=== PATIENT | male | born 1945 | race Caucasian/White ===

== ENCOUNTER 2020-11-29 19:52 | Emergency (ER) | payer OTHER ==
[~2020-11-29] VITALS: Ht 190.5 cm; Wt 99.0 kg
[2020-11-29] MEDS ORDERED: morphine INJ 10 MG/ML 1ML (SYR OR VIAL) IVP STA (20:14)
[2020-11-29] MEDS ORDERED: ONDANSETRON 4 MG/2 ML (SDV) Z0FRAN IVP ONE (20:15)
[2020-11-29] MEDS ORDERED: LIDOCAINE 2% VISCOUS 15 ML UDC PO ONE (20:15)
[2020-11-29] MEDS ORDERED: ANTACID SUSP 30 ML UDC (MYLANTA) PO ONE (20:15)
[2020-11-29] MEDS ORDERED: PANTOPRAZOLE 40 MG (PROTONIX) VIAL IV ONE (20:15)
[2020-11-29] MEDS ORDERED: NS IV 1000 ML 1,000 ML IV SCH (20:15)
--- NOTE | 2020-11-29 20:32 | ED General ---
General Chief Complaint: Skin/Wound Problems Stated Complaint: ABD RASH Nursing Triage Note: PT IN PER POV WITH C/O ABD RASH SECONDARY TO NEURALGIA X3 MONTHS. [facility] History of Present Illness Date Seen by Provider: Nov 29, 2020 Time Seen by Provider: 20:00 Initial Comments Patient presenting to the emergency department for evaluation of multiple complaints including continued dermatomal pain from a herpes infection that started September 03. He was diagnosed with zoster several weeks after the initial rash on his left mid abdomen and he says that he was started on medications 2 weeks after the symptoms started. He says he has had severe pain burning and sharp in the dermatomal distribution. Since that time he started having severe pain in his epigastrium and left upper quadrant that is worse whenever he eats or drinks he feels severe pain and he has been trying to avoid eating due to the severe pain. Patient says he has been on multiple medications and has tried NSAIDs Tylenol [place] gabapentin and amitriptyline. He says nothing has helped the pain and he has lost approximately 37 pounds in the past 3 months due to the symptoms. He initially said that he was taking large amounts of ibuprofen but then looking at his paperwork it appears that he has been taking large amounts of Tylenol and not ibuprofen as he says he stopped taking ibuprofen earlier on as it was not helping his symptoms. He denies fevers chills diarrhea bloody stools. He has had constipation. He is in no acute distress with normal vital signs. Allergies and Home Medications Allergies Coded Allergies: No Known Drug Allergies (Unverified , 11/29/20) Patient Home Medication List Home Medication List Reviewed: Yes Review of Systems Review of Systems Constitutional: no symptoms reported, weight loss EENTM: no symptoms reported Respiratory: no symptoms reported Cardiovascular: no symptoms reported Gastrointestinal: abdominal pain, constipation, loss of appetite, nausea, vomiting Genitourinary: no symptoms reported Musculoskeletal: no symptoms reported Skin: rash Psychiatric/Neurological: No Symptoms Reported All Other Systems Reviewed Negative Unless Noted: Yes Past Heimbjx-Tsjicn-Vjndmd Hx Patient Social History Tobacco Use?: No Smoking Status: Unknown if Ever Smoked Smokeless Tobacco Frequency: Unknown if Ever Used Use of E-Cig and/or Vaping Noel: Unknown if Ever Used Substance use?: No Alcohol Use?: Yes Alcohol Frequency: Once in a while Pt feels they are or have been: No Immunizations Up To Date First/Initial COVID19 Vaccinat: November 28, 2020 COVID19 Vaccine Tile Picker: Sholucie Physical Exam Vital Signs Vital Signs - First Documented 11/29/20 20:03 Temp 36.9 Pulse 99 Resp 16 B/P (MAP) 168/83 (111) Pulse Ox 97 O2 Delivery Room Air Capillary Refill : Less Than 3 Seconds Height, Weight, BMI Height: '" Weight: lbs. oz. kg; 27.00 BMI Method: General Appearance: No Apparent Distress, WD/WN Neck: Supple Respiratory: Lungs Clear, No Respiratory Distress Cardiovascular: Regular Rate, Rhythm Gastrointestinal: Soft, Tenderness (Diffuse left-sided abdominal tenderness to palpation with no rebound or guarding) Back: Normal Inspection Extremity: Normal Capillary Refill Neurologic/Psychiatric: Alert, Oriented x3 Skin: Warm/Dry, Other (Old appearing herpetic rash along the left upper abdomen) Progress/Results/Core Measures Suspected Sepsis SIRS Temperature: Pulse: 99 Respiratory Rate: 16 Laboratory Tests 11/29/20 20:30: White Blood Count 4.5 Blood Pressure 168 /83 Mean: 111 Laboratory Tests 11/29/20 20:30: Creatinine 0.83, Platelet Count 134, Total Bilirubin 0.5 Results/Orders Lab Results Laboratory Tests Test 11/29/20 20:30 Range/Units White Blood Count 4.5 4.3-11.0 10^3/uL Red Blood Count 4.58 4.35-5.85 10^6/uL Hemoglobin 15.1 13.3-17.7 G/DL Hematocrit 44 40-54 % Mean Corpuscular Volume 95 80-99 FL Mean Corpuscular Hemoglobin 33 25-34 PG Mean Corpuscular Hemoglobin Concent 35 32-36 G/DL Red Cell Distribution Width 12.7 10.0-14.5 % Platelet Count 134 130-400 10^3/uL Mean Platelet Volume 10.8 H 7.4-10.4 FL Immature Granulocyte % (Auto) 0 % Neutrophils (%) (Auto) 67 42-75 % Lymphocytes (%) (Auto) 24 12-44 % Monocytes (%) (Auto) 7 0-12 % Eosinophils (%) (Auto) 2 0-10 % Basophils (%) (Auto) 0 0-10 % Neutrophils # (Auto) 3.0 1.8-7.8 X 10^3 Lymphocytes # (Auto) 1.1 1.0-4.0 X 10^3 Monocytes # (Auto) 0.3 0.0-1.0 X 10^3 Eosinophils # (Auto) 0.1 0.0-0.3 10^3/uL Basophils # (Auto) 0.0 0.0-0.1 10^3/uL Immature Granulocyte # (Auto) 0.0 0.0-0.1 10^3/uL Sodium Level 140 135-145 MMOL/L Potassium Level 3.9 3.6-5.0 MMOL/L Chloride Level 104 98-107 MMOL/L Carbon Dioxide Level 23 21-32 MMOL/L Anion Gap 13 5-14 MMOL/L Blood Urea Nitrogen 25 H 7-18 MG/DL Creatinine 0.83 0.60-1.30 MG/DL Estimat Glomerular Filtration Rate 91 BUN/Creatinine Ratio 30 Glucose Level 111 H 70-105 MG/DL Calcium Level 9.7 8.5-10.1 MG/DL Corrected Calcium 9.5 8.5-10.1 MG/DL Total Bilirubin 0.5 0.1-1.0 MG/DL Aspartate Amino Transf (AST/SGOT) 11 5-34 U/L Alanine Aminotransferase (ALT/SGPT) 9 0-55 U/L Alkaline Phosphatase 72 40-136 U/L Total Protein 7.0 6.4-8.2 GM/DL Albumin 4.3 3.2-4.5 GM/DL Lipase 13 8-78 U/L Smear Scan OK My Mateus Ignacio - EWA GIRALDO DO Cbc With Automated Diff (11/29/20 20:14) Comprehensive Metabolic Panel (11/29/20 20:14) Lipase (11/29/20 20:14) Iv/Invasive Line Insertion .IV start (11/29/20 20:14) Ct Abdomen/Pelvis W (11/29/20 20:14) Ns Iv 1000 Ml (Sodium Chloride 0.9%) (11/29/20 20:15) Ondansetron Injection (Zofran Injectio (11/29/20 20:15) Morphine Injection (Morphine Injection (11/29/20 20:14) Pantoprazole Injection (Protonix Injecti (11/29/20 20:15) Lidocaine 2% Viscous 15 Ml (Xylocaine Vi (11/29/20 20:15) Antacid Suspension (Mylanta Suspension (11/29/20 20:15) Iohexol Injection (Omnipaque 350 Mg/Ml 1 (11/29/20 22:00) Received Contrast (Hold Metformin- Contr (11/29/20 22:00) Ns (Ivpb) (Sodium Chloride 0.9% Ivpb Bag (11/29/20 22:00) Hydromorphone Injection (Dilaudid Inject (11/29/20 22:30) Medications Given in ED Current Medications Medications Dose Ordered Sig/Olivia Route Start Time Stop Time Status Last Admin Dose Admin Hydromorphone HCl 1 mg ONCE ONCE IVP 11/29/20 22:30 11/29/20 22:31 DC 11/29/20 22:37 1 MG Iohexol 100 ml ONCE ONCE IV 11/29/20 22:00 11/29/20 22:01 DC 11/29/20 21:57 100 ML Ondansetron HCl 4 mg ONCE ONCE IVP 11/29/20 20:15 11/29/20 20:17 DC 11/29/20 20:41 4 MG Pantoprazole 40 mg ONCE ONCE IV 11/29/20 20:15 11/29/20 20:17 DC 11/29/20 20:46 40 MG Sodium Chloride 100 ml ONCE ONCE IV 11/29/20 22:00 11/29/20 22:01 DC 11/29/20 21:57 100 ML Vital Signs/I&O 11/29/20 20:03 Temp 36.9 Pulse 99 Resp 16 B/P (MAP) 168/83 (111) Pulse Ox 97 O2 Delivery Room Air Capillary Refill : Less Than 3 Seconds Blood Pressure Mean: 111 Progress Note : Progress Note Patient with postherpetic neuralgia with symptoms that may be more of a gastritis anything else given he has severe pain and nausea and decreased appetite with eating. Given he says he has lost 37 pounds in 3 months I will check labs imaging treat symptoms and reassess. Patient had severe pain in the emergency department but it improved with Dilaudid and his repeat abdominal exam is benign with no rebound or guarding. 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 I told patient there is no definitive diagnosis based off the CT but I am concerned that he has cancer and that is why he is losing weight and likely causing his pain as well. I told him that he warrants further work-up especially with the severe pain and recommended transfer to another facility to further treat his pain and get further work-up. Patient says that he does not have Medicare at this time and he is refusing transfer to [place]. I offered to try and transfer him to the [place] and he said he is not impressed with his [facility] and does not want me to transfer him there. I offered to give him more powerful pain medications at home and he said he does not like taking pain medication and wants to get off of them. I told him that his condition is likely treatable but he needs further testing and consultation. He says that he does not want to be transferred and does not want any new medications. I asked him what I can do for him from this emergency department and he said he does not want anything else. I offered to give him a printout of his radiology report and give him a CD of his CT and that he could try and follow with the doctors that he chooses to follow with. He is agreeable to this and was appreciative. I told him if there is anything else that he is concerned about or we can offer him he can come back to this emergency department anytime. Patient aware and agreeable with plan and was discharged. Departure Impression Primary Impression: Abdominal pain Qualified Codes: R10.9 - Unspecified abdominal pain Additional Impressions: Intra-abdominal lymphadenopathy Intraabdominal mass Disposition: HOME, SELF-CARE Condition: Stable Departure-Patient Inst. Referrals: HECTOR GUILLEN (PCP/Family) Primary Care Physician Patient Instructions: Abdominal Pain, Adult ED EWA GIRALDO DO Nov 29, 2020 20:32
[2020-11-29 20:53] LABS: HEMATOCRIT 44 % (40-54); HEMOGLOBIN 15.1 G/DL (13.3-17.7); MEAN CORPUSCULAR HEMOGLOBIN 33 PG (25-34); WHITE BLOOD COUNT 4.5 10^3/uL (4.3-11.0)
[2020-11-29 20:54] LABS: BASOPHILS % (AUTO) 0 % (0-10); EOSINOPHILS % (AUTO) 2 % (0-10); LYMPHOCYTES % (AUTO) 24 % (12-44); MEAN CORPUSCULAR HGB CONC 35 G/DL (32-36); MEAN CORPUSCULAR VOLUME 95 FL (80-99); MEAN PLATELET VOLUME 10.8 FL (7.4-10.4); MONOCYTES % (AUTO) 7 % (0-12); NEUTROPHILS % (AUTO) 67 % (42-75); PLATELET COUNT 134 10^3/uL (130-400)
[2020-11-29 20:55] LABS: EOSINOPHILS # (AUTO) 0.1 10^3/uL (0.0-0.3); LYMPHOCYTES # (AUTO) 1.1 X 10^3 (1.0-4.0); MONOCYTES # (AUTO) 0.3 X 10^3 (0.0-1.0)
[2020-11-29 21:08] LABS: SMEAR SCAN COMMENT OK
[2020-11-29 21:10] LABS: POTASSIUM 3.9 MMOL/L (3.6-5.0)
[2020-11-29 21:11] LABS: ALBUMIN 4.3 GM/DL (3.2-4.5); BILIRUBIN,TOTAL 0.5 MG/DL (0.1-1.0); CALCIUM 9.7 MG/DL (8.5-10.1); CREATININE SERUM 0.83 MG/DL (0.60-1.30)
[2020-11-29] MEDS ORDERED: HOLD METFORMIN - RECEIVED CONTRAST 20 ML VIAL IV SCH (22:00)
[2020-11-29] MEDS ORDERED: IOHEXOL 350 MG/ML 100 ML (OMNIPAQUE 350) VIAL IV ONE (22:00)
[2020-11-29] MEDS ORDERED: NS 100 ML (IVPB) BAG IV ONE (22:00)
[2020-11-29] MEDS ORDERED: HYDROmorphone 2 MG/ML VIAL (DILAUDID) IVP ONE (22:30)
[2020-11-29 23:41] VITALS: BP 179/79
--- NOTE | 2020-11-30 07:04 | Diagnostic Imaging Report ---
PROCEDURE: CT abdomen and pelvis with contrast. TECHNIQUE: Multiple contiguous axial images were obtained through the abdomen and pelvis after administration of intravenous contrast. Auto Exposure Controls were utilized during the CT exam to meet ALARA standards for radiation dose reduction. All CT scans use one or more of the following dose optimizing techniques: automated exposure control, MA and/or KvP adjustment based on patient size and exam type or iterative reconstruction. INDICATION: Abdominal rash, neuralgia for 3 months, left-sided abdominal pain, epigastric and left upper quadrant pain. COMPARISON STUDY: None FINDINGS: The lung bases are clear. Small cyst present in the liver. The spleen, pancreas, adrenal glands and right kidney are normal. Simple cysts are present in the left kidney. Urinary bladder normal. Prostate gland is enlarged and inhomogeneous. Diverticuli are present in the colon without inflammation. No ascites, free air or loculated fluid collections are present. Large retroperitoneal lymph nodes are present incasing the aorta. Enlarged lymph nodes are present in the left lower quadrant. A conglomerate mass in the left lower quadrant measures 9.2 x 6.8 cm. Osseous structures demonstrate mild degenerative changes. IMPRESSION: 1. There are large retroperitoneal left lower abdominal masses worrisome for lymphoma or possibly metastasis. 2. Diverticulosis without inflammation. Findings agree with [facility] report. Dictated by: Dictated on workstation # [id number]
== END 2020-11-29 23:41 | disposition home or self-care (01) ==
LOC: EDUNIT# 19:52 → ER FS 19:54
DX: R19.00 Intra-abdominal and pelvic swelling, mass and lump, unspecified site (principal); R59.0 Localized enlarged lymph nodes; R10.84 Generalized abdominal pain
CPT/HCPCS: 36415; 74177; 80053; 83690; 85025; 96374; 96375

== ENCOUNTER 2021-01-02 13:45 | Emergency (ER) | payer OTHER ==
[~2021-01-02] VITALS: Ht 190.5 cm; Wt 98.4 kg
[2021-01-02 14:49] LABS: BILIRUBIN,URINE NEGATIVE (NEGATIVE); CLARITY,URINE CLOUDY; COLOR,URINE YELLOW; GLUCOSE, URINE (UA) NEGATIVE (NEGATIVE); KETONES,URINE NEGATIVE (NEGATIVE); LEUKOCYTE ESTERASE ,URINE NEGATIVE (NEGATIVE); NITRITE,URINE NEGATIVE (NEGATIVE); PROTEIN,URINE NEGATIVE (NEGATIVE)
--- NOTE | 2021-01-02 14:52 | ED GU-Male ---
General Chief Complaint: Catheter/Drain/Tube Problems Stated Complaint: CATHETER BLOCKAGE Nursing Triage Note: PT AMBULATE TO ROOM 03 WITH C/O URINARY CATH BLOCKAGE. PT STATES CATH WAS WORKING THIS MORNING AND THEN STOPPED DRAINING. CATH PLACED OVER A WEEK AGO AT [facility] [place]. PT REPORTS HE HAS AN APPT WITH UROLOGIST ON SATURDAY. Source: patient Exam Limitations: no limitations History of Present Illness Date Seen by Provider: Jan 02, 2021 Time Seen by Provider: 14:26 Initial Comments Patient ER by private conveyance from home with chief complaint of catheter blockage a little bit of blood in the urine after having a bowel movement today and feeling of pain in his suprapubic region. He had the catheter placed at [facility] approximately 1 week ago. He has follow-up with Dr. Pepper at [facility] next Saturday, 2 days from now. No fevers chills nausea vomiting diarrhea. Allergies and Home Medications Allergies Coded Allergies: No Known Drug Allergies (Unverified , 11/29/20) Patient Home Medication List Home Medication List Reviewed: Yes Review of Systems Review of Systems Constitutional: No chills, No diaphoresis, No fever EENTM: No ear discharge, No ear pain Respiratory: No cough, No short of breath Cardiovascular: No chest pain, No edema Gastrointestinal: No abdominal pain, No nausea, No vomiting Genitourinary: denies discharge, denies dysuria Musculoskeletal: No back pain, No joint pain All Other Systemes Reviewed Negative Unless Noted: Yes Past Ofpfunm-Ssfnfe-Hwoohl Hx Patient Social History Tobacco Use?: No Smoking Status: Never a Smoker Substance use?: Yes Substance type: Marijuana Substance frequency: Once in a while Alcohol Use?: Yes Alcohol Frequency: Once in a while Pt feels they are or have been: No Immunizations Up To Date First/Initial COVID19 Vaccinat: 11/2020 Second COVID19 Vaccination Talha: 12/2020 COVID19 Vaccine Police Communications Dispatcher: MODERNA Physical Exam Vital Signs Vital Signs - First Documented 01/02/21 14:23 Temp 36.7 Pulse 110 Resp 19 B/P (MAP) 143/102 (116) O2 Delivery Room Air Capillary Refill : Less Than 3 Seconds Height, Weight, BMI Height: '" Weight: lbs. oz. kg; 27.00 BMI Method: General Appearance: WD/WN, moderate distress HEENT: PERRL/EOMI, pharynx normal Cardiovascular: normal peripheral pulses, regular rate, rhythm Respiratory: no respiratory distress, no accessory muscle use Gastrointestinal: soft, tenderness (Suprapubic) Extremities: normal range of motion, non-tender, normal capillary refill Progress/Results/Core Measures Suspected Sepsis SIRS Temperature: Pulse: 110 Respiratory Rate: 19 Blood Pressure 143 /102 Mean: 116 Results/Orders Lab Results Laboratory Tests Test 01/02/21 14:35 Range/Units Urine Color YELLOW Urine Clarity CLOUDY Urine pH 7.0 5-9 Urine Specific [place] 1.010 L 1.016-1.022 Urine Protein NEGATIVE NEGATIVE Urine Glucose (UA) NEGATIVE NEGATIVE Urine Ketones NEGATIVE NEGATIVE Urine Nitrite NEGATIVE NEGATIVE Urine Bilirubin NEGATIVE NEGATIVE Urine Urobilinogen 0.2 < = 1.0 MG/DL Urine Leukocyte Esterase NEGATIVE NEGATIVE Urine RBC (Auto) 3+ H NEGATIVE Urine RBC >100 H /HPF Urine WBC RARE /HPF Urine Squamous Epithelial Cells RARE /HPF Urine Crystals PRESENT H /LPF Urine Amorphous Sediment RARE TAMMY PHOSPHATE H /LPF Urine Bacteria TRACE /HPF Urine Casts NONE /LPF Urine Mucus NEGATIVE /LPF Urine Culture Indicated NO My Orders Orders - DOTTIE RAMOS Ua Culture If Indicated (01/02/21 14:10) Vital Signs/I&O 01/02/21 14:23 Temp 36.7 Pulse 110 Resp 19 B/P (MAP) 143/102 (116) O2 Delivery Room Air Capillary Refill : Less Than 3 Seconds Blood Pressure Mean: 116 Progress Note : Time: 14:51 Progress Note We are able to pass sterile set water into the bladder but could not get anything to return. Replaced the Rojas catheter and there was a large bloody clot acting as a ball valve at the orifice of the Rojas catheter. Patient's produced about 700 cc of clear urine and has significant improvement in his symptoms. Departure Impression Primary Impression: Obstruction of Rojas catheter Qualified Codes: T83.091A - Other mechanical complication of indwelling urethral catheter, initial encounter Disposition: 01 HOME, SELF-CARE Condition: Stable Departure-Patient Inst. Decision time for Depature: 14:51 Referrals: NO,LOCAL PHYSICIAN (PCP/Family) Primary Care Physician Patient Instructions: How to Care for Your Rojas Catheter, Male Add. Discharge Instructions: Drink plenty of fluids. Keep your follow-up appointment on Saturday with the urologist. All discharge instructions reviewed with patient and/or family. Voiced understanding. DOTTIE RAMOS Jan 02, 2021 14:52
[2021-01-02 14:56] LABS: AMORPHOUS SEDIMENT,UR RARE AMOR PHOSPHATE /LPF; BACTERIA,URINE TRACE /HPF; RBC,URINE >100 /HPF; SQUAMOUS EPITHELIAL CELL,UR RARE /HPF; WBC,URINE RARE /HPF
[2021-01-02 15:44] VITALS: BP 136/70
== END 2021-01-02 15:44 | disposition home or self-care (01) ==
LOC: EDUNIT# 13:45 → ER 13:46
DX: T83.091A Other mechanical complication of indwelling urethral catheter, initial encounter (principal)
CPT/HCPCS: 81000; 99282

== ENCOUNTER 2021-02-23 05:44 | Outpatient (CLI) | payer OTHER ==
[~2021-02-23] VITALS: Ht 190.5 cm; Wt 102.4 kg
[2021-02-24] MEDS ORDERED: NORT50CA PO (10:03)
[2021-02-24] MEDS ORDERED: FAMO20TA3 PO (10:03)
[2021-02-24] MEDS ORDERED: TERB15CR6 TP (10:03)
[2021-02-24] MEDS ORDERED: MULT-1136 PO (10:03)
[2021-02-24] MEDS ORDERED: PREG75CA PO (10:03)
[2021-02-24] MEDS ORDERED: OMEG-160 PO (10:03)
[2021-02-24] MEDS ORDERED: TMSL.4C PO (10:03)
[2021-02-24] MEDS ORDERED: LEVO50CA4 PO (10:03)
[2021-02-24] MEDS ORDERED: TADA5TAB13 PO (10:03)
[2021-02-24] MEDS ORDERED: [UNRECOGNIZED DRUG - CODE] TP (10:03)
[2021-02-24] MEDS ORDERED: FINA5TAB6 PO (10:03)
[2021-02-24] MEDS ORDERED: PREG150C PO (11:42)
== END 2021-02-24 11:51 | disposition home or self-care (01) ==
LOC: PREOP 05:44
PROVIDERS: ATTEND Surgery
DX: Z01.818 Encounter for other preprocedural examination (principal)

== ENCOUNTER → 2021-02-27 | Outpatient (CLI) | payer OTHER ==
[~2021-02-27] MED LIST: FAMO20TA3 PO; FINA5TAB6 PO; LEVO50CA4 PO; MULT-1136 PO; NORT50CA PO; OMEG-160 PO; PREG150C PO; PREG75CA PO; TADA5TAB13 PO; TERB15CR6 TP; TMSL.4C PO; [UNRECOGNIZED DRUG - CODE] TP
--- NOTE | 2021-02-27 16:15 | Diagnostic Imaging Report ---
PROCEDURE: CT chest without contrast. TECHNIQUE: Multiple contiguous axial images were obtained through the chest without the use of intravenous contrast. Auto Exposure Controls were utilized during the CT exam to meet ALARA standards for radiation dose reduction. INDICATION: Smoking history. History of neck and abdominal mass. Weight loss. FINDINGS: The lungs are clear with no mass or infiltrate seen. There is no effusion or pneumothorax. There is bilateral lower cervical lymphadenopathy with masses seen in the anterior and superior mediastinum. The largest is at the level of the origins of the brachiocephalic vessels and involves an area measuring approximately 7 x 10 x 9 cm. Lymphoma is a prime consideration as there is also axillary lymphadenopathy. No bony destructive lesions are seen. IMPRESSION: There is lower cervical as well as mediastinal and bilateral axillary lymphadenopathy. Malignancy needs to be excluded. Lymphoma is primary consideration. Dictated by: Dictated on workstation # [id number]
== END ==
LOC: RAD 13:00
PROVIDERS: ATTEND Nurse Practitioner
DX: Z01.89 Encounter for other specified special examinations (principal); R59.0 Localized enlarged lymph nodes; R63.4 Abnormal weight loss; Z87.891 Personal history of nicotine dependence
CPT/HCPCS: 71250

== ENCOUNTER 2021-03-01 08:13 | Day surgery (SDC) | payer OTHER ==
[2021-03-01] VITALS (11 sets, daily range): BP systolic 125–167; BP diastolic 67–90
[~2021-03-01] VITALS: Ht 190.5 cm; Wt 102.4 kg
[2021-03-01] MEDS ORDERED: ceFAZolin 2 GM IV Premixed 50 ML IV ONE (08:30)
[2021-03-01] MEDS ORDERED: LACTATED RINGERS 1,000 ML IV PRN (08:30)
[2021-03-01] MEDS ORDERED: LIDOCAINE/EPI 1%-1:100,000 (XYLOCAINE) 20ML ONE (09:11)
[2021-03-01] MEDS ORDERED: ONDANSETRON 4 MG/2 ML (SDV) Z0FRAN IVP ONE (09:30)
[2021-03-01] MEDS ORDERED: FAMOTIDINE 20MG/2ML IV (PEPCID) IVP ONE (09:30)
[2021-03-01] MEDS ORDERED: FAMOTIDINE 20MG/2ML IV (PEPCID) ONE (09:31)
[2021-03-01] MEDS ORDERED: ONDANSETRON 4 MG/2 ML (SDV) Z0FRAN ONE ×2 (09:31→09:36)
[2021-03-01] MEDS ORDERED: LIDOCAINE PF 2% 5 ML (XYLOCAINE) VIAL ONE (09:36)
[2021-03-01] MEDS ORDERED: MIDAZOLAM 2 MG/2 ML (VERSED) VIAL ONE (09:36)
[2021-03-01] MEDS ORDERED: proPOfol 200 MG/20 ML (DIPRIVAN) VIAL IV ONE (09:36)
[2021-03-01] MEDS ORDERED: fentaNYL INJ 100 MCG/2 ML AMP ONE (09:36)
[2021-03-01] MEDS ORDERED: SEVOFLURANE (ULTANE) 15 ML INHAL SOLN ONE (09:36)
--- NOTE | 2021-03-01 10:04 | Progress Note-Pre Operative ---
Pre-Operative Progress Note H&P Reviewed The H&P was reviewed, patient examined and no changes noted. Time Seen by Provider: 10:03 Date H&P Reviewed: Mar 01, 2021 Time H&P Reviewed: 10:03 Pre-Operative Diagnosis: Left neck mass, site marked PARMJIT OLSON DO Mar 01, 2021 10:04
--- NOTE | 2021-03-01 11:11 | Progress Note-Post Operative ---
Post-Operative Progess Note Surgeon (s)/Leather Stamper (s) Surgeon PARMJIT OLSON DO Leather Stamper: FRANCHESKA Conde Pre-Operative Diagnosis Left neck mass, site marked Post-Operative Diagnosis Deep Posterior Cervical LN Procedure & Operative Findings Date of Procedure 03/01/21 Procedure Performed/Findings Exc of deep posterior cervical lymph node Anesthesia Type LMA Estimated Blood Loss Estimated blood loss (mL): scant Specimens/Packing Specimens Removed deep posterior lymph node - left side PARMJIT OLSON DO Mar 01, 2021 11:11
--- NOTE | 2021-03-01 11:13 | Discharge Inst-Surgical ---
Discharge Inst-Surgical Depart Medication/Instructions New, Converted or Re-Newed RX: Other (Take Motrin or tylenol for pain) Patient Instructions Follow up Appt: Make appointment for 1 week. [phone] Instructions: No strenuous activity. May shower in 24 hours, no tub bath or soaking. Use incentive spirometer at home as directed. No Smoking Skin/Wound Care: May remove bandages in am. You need to leave the Dermabond on incision it will fall off on it's own. Symptoms to Report: Appetite Changes, Extremity Discoloration, Numbness/Tingling, Swelling Increased, Bleeding Excessive, Eyesight Changes, Pain Increased, Urine Color Change, Constipation(Persistent), Fever over 101 degree F, Pain/Pressure in chest, Urinating Difficulty, Cough Up/Vomit Blood, Heart Beat Irreg/Pounding, Pain/Pressure in jaw, Cramps in feet or legs, Lightheadedness, Pain/Pressure in shoulder, Diarrhea(Persistent), Memory Changes Suddenly, Questions/Concerns, Weight gain consecutive days, Dizziness/Fainting, Nausea/Vomiting, Shortness of Breath, Weight gain over 2 pounds If questions or concerns contact your physician Or seek help at emergency department. Activity Activity Instructions: Avoid Stress to Incision Driving Instructions: You May Drive Diet Discharge Diet: No Restrictions Diet After 24 Hours: Clear Liquid if Nauseous If Any Problems/Questions/Issu: Contact Your Physician, Go to Emergency Room Skin/Wound Care Infection Signs and Symptoms: Increased Redness, Foul Odor of Wound, Increased Drainage, Skin Itchy or Has a Rash, Increased Swelling, Temperature Above 101 F Bathing Instructions: Shower Stitches/Miguel Angel/Dermabond Dis: Dermabond Ice Pack: Ice On and Off Site PARMJIT OLSON DO Mar 01, 2021 11:13
[2021-03-01] MEDS ORDERED: HYDROmorphone 2 MG/ML VIAL (DILAUDID) IV ONE (11:45)
[2021-03-01] MEDS ORDERED: ONDANSETRON 4 MG/2 ML (SDV) Z0FRAN IVP PRN (11:45)
[2021-03-01] MEDS ORDERED: HYDROmorphone 2 MG/ML VIAL (DILAUDID) ONE (11:52)
--- NOTE | 2021-03-02 16:19 | OPERATIVE REPORT ---
DATE OF SERVICE: 03/01/2021 PREOPERATIVE DIAGNOSIS: Left posterior neck mass. POSTOPERATIVE DIAGNOSIS: Left posterior neck mass, probable deep cervical lymph node. PROCEDURE: Excision of deep cervical lymph nodes. SURGEON: Alec Olson DO SUPERVISOR ELECTRIC MOTOR TESTING: LEYLA Conde BLOOD LOSS: Scant. FLUIDS: Per anesthesia. POSTOPERATIVE CONDITION: Stable. INDICATION FOR PROCEDURE: The patient is a 75-year-old male, who had a new lesion developed in the neck as well as something in the stomach, rule out lymphoma. FINDINGS: The patient had a left posterior neck mass removed, looked like it was a posterior deep cervical lymph node. PROCEDURE NOTE: After informed consent was obtained, the patient was brought to the operating room, placed on the table in the right lateral decubitus position. He was then sterilely prepped and draped in normal fashion. Local lidocaine was used to infiltrate the skin had been marked previously. Timeout done and everyone agreed on the Marcaine, made an incision with #15 blade, carried down through the skin into subcutaneous tissue, then deepened down to subcutaneous tissue with Bovie electrocautery, going down through muscle, encountered in this mass and then started showing it out. It looked like it was a lymph node. I did open up a little bit and expressed some of the inner portion, this was grasped and passed off table and then removed the rest of this mass, which looked like a lymph node. Copiously irrigated with normal saline. Hemostasis obtained using Bovie electrocautery. Closed the deep tissue with 3-0 Vicryl 3 interrupted sutures, then closed the skin with 4-0 undyed Monocryl, 3 interrupted subcuticular stitches. Area was cleaned and dried. Dermabond placed as well as dressing. The patient tolerated the procedure and transferred to recovery room in stable condition. Sponge, instrument and needle count correct at the end of the case. Job ID: [id number] DocumentID: [id number] Dictated Date: 03/02/2021 15:48:12 Link Trainer Maintenance Man Date: 03/02/2021 16:18:42 Dictated By: ALEC OLSON DO
--- NOTE | 2021-03-02 20:18 | Anesthesia-General Post-Op ---
General Patient Condition Mental Status/LOC: Same as Preop Cardiovascular: Satisfactory Nausea/Vomiting: Absent Respiratory: Satisfactory Pain: Controlled Complications: Absent Post Op Complications Complications None Follow Up Care/Instructions Patient Instructions None needed. Anesthesia/Patient Condition Patient Condition Patient is doing well, no complaints, stable vital signs, no apparent adverse anesthesia problems. No complications reported per nursing. [place] [facility] [place]: Yes ASIF NAVARRO CRNA Mar 02, 2021 20:18
== END 2021-03-01 13:18 | disposition home or self-care (01) ==
LOC: SDC 08:13
PROVIDERS: ATTEND Surgery
DX: C83.01 Small cell B-cell lymphoma, lymph nodes of head, face, and neck (principal); I10 Essential (primary) hypertension; E78.00 Pure hypercholesterolemia, unspecified; K21.9 Gastro-esophageal reflux disease without esophagitis; G89.29 Other chronic pain; Z79.891 Long term (current) use of opiate analgesic; G47.33 Obstructive sleep apnea (adult) (pediatric); Z87.891 Personal history of nicotine dependence; Z79.890 Hormone replacement therapy; Z79.899 Other long term (current) drug therapy; Z88.8 Allergy status to other drugs, medicaments and biological substances
CPT/HCPCS: 87081

== ENCOUNTER 2021-03-10 08:54 | Outpatient (RCR) | payer OTHER | END 2021-05-05 | disposition home or self-care (01) | LOC: ONC 08:54 | PROVIDERS: ATTEND Internal Medicine Hematology & Oncology | DX: C83.08 Small cell B-cell lymphoma, lymph nodes of multiple sites (principal); N40.0 Benign prostatic hyperplasia without lower urinary tract symptoms; B02.9 Zoster without complications | CPT/HCPCS: 99214 ==

== ENCOUNTER → 2021-05-02 | Outpatient (CLI) | payer OTHER ==
--- NOTE | 2021-05-02 12:45 | Diagnostic Imaging Report ---
Indication: B-cell lymphoma, initial staging. Serum blood glucose level at time of injection 108 mg/dL. Patient was administered 14.1 mCi F-18 FDG intravenously in the left hand and PET imaging was performed from the top of skull to mid thighs. Noncontrast CT was also performed for attenuation correction and anatomic correlation. No prior PET/CT studies are available for comparison. There is bulky lymphadenopathy in the neck, particularly left neck where a large node measures approximately 8.5 x 4.0 cm. There is bulky mediastinal lymphadenopathy. Largest prevascular node measures 11.4 x 7.1 cm. There is central retroperitoneal lymphadenopathy encasing the aorta measuring approximately 15.7 x 9.7 cm. Enlarged lymph nodes in the left lower quadrant are seen. There is iliac and inguinal lymphadenopathy. Symmetric activity throughout the brain is noted. Adenopathy in the neck does show very low level FDG avidity with SUV max of approximately 3. The adenopathy in the mediastinum and abdomen is also very low level pelvic adenopathy is very low level and similar to background activity. A right inguinal node does show an SUV max of 5.7. IMPRESSION: There is bulky lymphadenopathy in the neck, chest, abdomen and pelvis, as described. Majority of adenopathy demonstrates very low-level FDG avidity with SUV max approximately 3. The highest uptake does involve the right groin lymph node, as described. Dictated by: Dictated on workstation # [id number]
== END ==
LOC: RAD 09:00
PROVIDERS: ATTEND Internal Medicine Hematology & Oncology
DX: C83.08 Small cell B-cell lymphoma, lymph nodes of multiple sites (principal)

== ENCOUNTER → 2021-05-11 | Outpatient (CLI) | payer OTHER ==
[2021-05-11 09:51] LABS: BASOPHILS % (AUTO) 0 % (0-10); HEMATOCRIT 44 % (40-54); MEAN CORPUSCULAR VOLUME 100 fL (80-99)
[2021-05-11 09:53] LABS: EOSINOPHILS # (AUTO) 0.1 10^3/uL (0.0-0.3); EOSINOPHILS % (AUTO) 2 % (0-10); HEMOGLOBIN 14.2 g/dL (13.3-17.7); LYMPHOCYTES # (AUTO) 3.4 10^3/uL (1.0-4.0); LYMPHOCYTES % (AUTO) 54 % (12-44); MEAN CORPUSCULAR HEMOGLOBIN 32 pg (25-34); MEAN CORPUSCULAR HGB CONC 32 g/dL (32-36); MEAN PLATELET VOLUME 10.7 fL (9.0-12.2); MONOCYTES # (AUTO) 1.2 10^3/uL (0.0-1.0); MONOCYTES % (AUTO) 18 % (0-12); NEUTROPHILS # (AUTO) 1.6 10^3/uL (1.8-7.8); NEUTROPHILS % (AUTO) 25 % (42-75); PLATELET COUNT 108 10^3/uL (130-400); WHITE BLOOD COUNT 6.4 10^3/uL (4.3-11.0)
[2021-05-11 10:12] LABS: ALBUMIN 4.2 GM/DL (3.2-4.5); BILIRUBIN,TOTAL 0.4 MG/DL (0.1-1.0); CALCIUM 9.4 MG/DL (8.5-10.1); CREATININE SERUM 1.11 MG/DL (0.60-1.30); POTASSIUM 3.7 MMOL/L (3.6-5.0); TOTAL PROTEIN 7.2 GM/DL (6.4-8.2)
== END ==
LOC: ONC 09:40
PROVIDERS: ATTEND Internal Medicine Hematology & Oncology
DX: C83.00 Small cell B-cell lymphoma, unspecified site (principal); B02.9 Zoster without complications; G62.89 Other specified polyneuropathies
CPT/HCPCS: 80053; 83615; 85025; 99213

== ENCOUNTER → 2021-06-23 | Outpatient (CLI) | payer OTHER ==
[2021-06-23 09:53] LABS: BASOPHILS % (AUTO) 0 % (0-10); EOSINOPHILS # (AUTO) 0.1 10^3/uL (0.0-0.3); HEMATOCRIT 38 % (40-54); LYMPHOCYTES # (AUTO) 0.7 10^3/uL (1.0-4.0); LYMPHOCYTES % (AUTO) 21 % (12-44); MEAN CORPUSCULAR VOLUME 98 fL (80-99); MONOCYTES # (AUTO) 0.3 10^3/uL (0.0-1.0)
[2021-06-23 09:55] LABS: EOSINOPHILS % (AUTO) 2 % (0-10); HEMOGLOBIN 12.6 g/dL (13.3-17.7); MEAN CORPUSCULAR HEMOGLOBIN 32 pg (25-34); MEAN CORPUSCULAR HGB CONC 33 g/dL (32-36); MEAN PLATELET VOLUME 11.2 fL (9.0-12.2); MONOCYTES % (AUTO) 8 % (0-12); NEUTROPHILS # (AUTO) 2.2 10^3/uL (1.8-7.8); NEUTROPHILS % (AUTO) 68 % (42-75); PLATELET COUNT 74 10^3/uL (130-400); WHITE BLOOD COUNT 3.3 10^3/uL (4.3-11.0)
[2021-06-23 10:11] LABS: ALBUMIN 3.5 GM/DL (3.2-4.5); BILIRUBIN,TOTAL 0.6 MG/DL (0.1-1.0); CREATININE SERUM 1.09 MG/DL (0.60-1.30); POTASSIUM 3.6 MMOL/L (3.6-5.0); TOTAL PROTEIN 6.8 GM/DL (6.4-8.2); URIC ACID 4.9 MG/DL (2.6-7.2)
== END ==
LOC: ONC 08:57
PROVIDERS: ATTEND Internal Medicine Hematology & Oncology
DX: Z45.2 Encounter for adjustment and management of vascular access device (principal); C83.08 Small cell B-cell lymphoma, lymph nodes of multiple sites; B02.9 Zoster without complications; G62.9 Polyneuropathy, unspecified; E03.9 Hypothyroidism, unspecified; N40.0 Benign prostatic hyperplasia without lower urinary tract symptoms
CPT/HCPCS: 36415; 80053; 84550; 85025; 99213

== ENCOUNTER → 2021-08-03 | Outpatient (RCR) | payer OTHER ==
[2021-08-03 09:21] LABS: HEMOGLOBIN 13.4 g/dL (13.3-17.7); MONOCYTES # (AUTO) 0.1 10^3/uL (0.0-1.0); MONOCYTES % (AUTO) 1 % (0-12)
[2021-08-03 09:23] LABS: BASOPHILS % (AUTO) 1 % (0-10); EOSINOPHILS # (AUTO) 0.1 10^3/uL (0.0-0.3); EOSINOPHILS % (AUTO) 3 % (0-10); HEMATOCRIT 42 % (40-54); LYMPHOCYTES % (AUTO) 51 % (12-44); MEAN CORPUSCULAR HEMOGLOBIN 32 pg (25-34); MEAN CORPUSCULAR HGB CONC 32 g/dL (32-36); MEAN CORPUSCULAR VOLUME 100 fL (80-99); MEAN PLATELET VOLUME 12.5 fL (9.0-12.2); NEUTROPHILS # (AUTO) 1.7 10^3/uL (1.8-7.8); NEUTROPHILS % (AUTO) 43 % (42-75); PLATELET COUNT 96 10^3/uL (130-400); WHITE BLOOD COUNT 3.9 10^3/uL (4.3-11.0)
[2021-08-03 09:44] LABS: ALBUMIN 3.6 GM/DL (3.2-4.5); BILIRUBIN,TOTAL 0.3 MG/DL (0.1-1.0); CALCIUM 8.7 MG/DL (8.5-10.1); CREATININE SERUM 0.92 MG/DL (0.60-1.30); POTASSIUM 3.8 MMOL/L (3.6-5.0); TOTAL PROTEIN 6.3 GM/DL (6.4-8.2)
== END ==
LOC: ONC 09:03
PROVIDERS: ATTEND Internal Medicine Hematology & Oncology
DX: C83.01 Small cell B-cell lymphoma, lymph nodes of head, face, and neck (principal); G62.0 Drug-induced polyneuropathy; E03.9 Hypothyroidism, unspecified; N40.0 Benign prostatic hyperplasia without lower urinary tract symptoms; B02.9 Zoster without complications
CPT/HCPCS: 36415; 80053; 84443; 85025; 99213

== ENCOUNTER → 2021-08-21 | Outpatient (CLI) | payer OTHER ==
[~2021-08-21] MED LIST changes: +CATHETER FLUSH 10 ML SYR IV PRN; +HOLD METFORMIN - RECEIVED CONTRAST 20 ML VIAL IV SCH; +IOHEXOL 350 MG/ML 100 ML (OMNIPAQUE 350) VIAL IV ONE; +NS 100 ML (IVPB) BAG IV ONE
--- NOTE | 2021-08-21 13:28 | Diagnostic Imaging Report ---
EXAMINATION: CT neck, chest, abdomen and pelvis with intravenous contrast. TECHNIQUE: Multiple contiguous axial images were obtained through the neck, chest, abdomen and pelvis after the uneventful administration of intravenous contrast. All CT scans use one or more of the following dose optimizing techniques: automated exposure control, MA and/or KvP adjustment based on patient size and exam type or iterative reconstruction. HISTORY: Lymphoma. COMPARISON: None available. FINDINGS: Neck CT: There is a 2.6 x 5.3 cm left posterior cervical lymph node. There are numerous additional mildly enlarged level two and three lymph nodes measuring up to 15 mm. There is left supraclavicular lymphadenopathy measuring up to 1.2 cm. The muscles of the neck are normal. Vessels of the neck demonstrate normal course and caliber. Fascial planes are preserved and the deep spaces of the neck are normal. The visualized airway is widely patent. The base of the skull and the temporal bones are normal. Limited views of the brain including the cerebellum and brainstem are normal. The limited view of the [place] is unremarkable. The visualized portions of the orbits are normal. There are no suspicious osseus lesions. Chest CT: There is no edema or pneumonia. No pleural effusion. No pneumothorax. No suspicious nodules. There is mild dependent atelectasis. Axillary lymphadenopathy is improved. Previously seen lymph nodes measuring up to 15 mm now measures 7 mm. Para-aortic lymphadenopathy measures 2.7 cm in short axis, previously 6.3 cm. Heart size is normal. There are moderate coronary artery calcifications. No pericardial effusion. Aorta is normal in caliber. Abdomen and Pelvis CT: The liver is normal without focal lesion. There is no biliary ductal dilation. Gallbladder is normal. Pancreas is normal. Spleen is normal. Adrenal glands are normal. There is a simple cyst in left kidney. No suspicious renal lesions. There is no hydronephrosis. Urinary bladder is normal. Bowel is normal in caliber without obstruction or inflammation. No free fluid or air. Retroperitoneal lymphadenopathy has decreased. The maximal thickness of a anastasia mass is now 3.6 cm, previously 7.8 cm. Mesenteric lymph nodes in the left lower quadrant have decreased in size measuring 2.8 cm, previously 4.8 cm., Aorta is normal in caliber without aneurysm. There are no suspicious osseous lesions. IMPRESSION: 1. Persistent but decreased size of lymphadenopathy in the neck, chest, abdomen and pelvis. Dictated by: Dictated on workstation # [id number]
== END ==
LOC: RAD 10:15
PROVIDERS: ATTEND Internal Medicine Hematology & Oncology
DX: C83.00 Small cell B-cell lymphoma, unspecified site (principal)
CPT/HCPCS: 70491; 71260; 74176

== ENCOUNTER 2021-08-24 10:43 | Outpatient (RCR) | payer OTHER ==
[~2021-08-24 10:43] MED LIST changes: -CATHETER FLUSH 10 ML SYR IV PRN; -HOLD METFORMIN - RECEIVED CONTRAST 20 ML VIAL IV SCH; -IOHEXOL 350 MG/ML 100 ML (OMNIPAQUE 350) VIAL IV ONE; -NS 100 ML (IVPB) BAG IV ONE
[2021-08-24 11:03] LABS: BASOPHILS % (AUTO) 1 % (0-10)
[2021-08-24 11:06] LABS: EOSINOPHILS # (AUTO) 0.1 10^3/uL (0.0-0.3); EOSINOPHILS % (AUTO) 2 % (0-10); HEMATOCRIT 44 % (40-54); LYMPHOCYTES # (AUTO) 2.1 10^3/uL (1.0-4.0); LYMPHOCYTES % (AUTO) 53 % (12-44); MEAN CORPUSCULAR HEMOGLOBIN 32 pg (25-34); MEAN CORPUSCULAR HGB CONC 32 g/dL (32-36); MEAN CORPUSCULAR VOLUME 99 fL (80-99); MEAN PLATELET VOLUME 12.6 fL (9.0-12.2); MONOCYTES # (AUTO) 0.1 10^3/uL (0.0-1.0); MONOCYTES % (AUTO) 2 % (0-12); NEUTROPHILS # (AUTO) 1.7 10^3/uL (1.8-7.8); NEUTROPHILS % (AUTO) 42 % (42-75); PLATELET COUNT 109 10^3/uL (130-400); WHITE BLOOD COUNT 3.9 10^3/uL (4.3-11.0)
[2021-08-24 11:17] LABS: ALBUMIN 3.8 GM/DL (3.2-4.5); BILIRUBIN,TOTAL 0.4 MG/DL (0.1-1.0); CALCIUM 9.2 MG/DL (8.5-10.1); CREATININE SERUM 0.85 MG/DL (0.60-1.30); POTASSIUM 3.8 MMOL/L (3.6-5.0); TOTAL PROTEIN 6.6 GM/DL (6.4-8.2)
== END 2021-09-02 | disposition home or self-care (01) ==
LOC: ONC 10:43
PROVIDERS: ATTEND Internal Medicine Hematology & Oncology
DX: C83.00 Small cell B-cell lymphoma, unspecified site (principal); B02.9 Zoster without complications; G62.9 Polyneuropathy, unspecified; E03.9 Hypothyroidism, unspecified
CPT/HCPCS: 36415; 80053; 85025; 99213

== ENCOUNTER → 2021-09-14 | Outpatient (CLI) | payer OTHER ==
[2021-09-14 14:15] LABS: HEMOGLOBIN 14.2 g/dL (13.3-17.7)
[2021-09-14 14:17] LABS: BASOPHILS % (AUTO) 1 % (0-10); EOSINOPHILS # (AUTO) 0.1 10^3/uL (0.0-0.3); EOSINOPHILS % (AUTO) 3 % (0-10); HEMATOCRIT 43 % (40-54); LYMPHOCYTES # (AUTO) 1.8 10^3/uL (1.0-4.0); LYMPHOCYTES % (AUTO) 52 % (12-44); MEAN CORPUSCULAR HEMOGLOBIN 33 pg (25-34); MEAN CORPUSCULAR HGB CONC 33 g/dL (32-36); MEAN CORPUSCULAR VOLUME 98 fL (80-99); MEAN PLATELET VOLUME 12.3 fL (9.0-12.2); MONOCYTES # (AUTO) 0.1 10^3/uL (0.0-1.0); MONOCYTES % (AUTO) 2 % (0-12); NEUTROPHILS # (AUTO) 1.4 10^3/uL (1.8-7.8); NEUTROPHILS % (AUTO) 42 % (42-75); PLATELET COUNT 118 10^3/uL (130-400); WHITE BLOOD COUNT 3.4 10^3/uL (4.3-11.0)
[2021-09-14 14:21] LABS: POTASSIUM 3.8 MMOL/L (3.6-5.0)
[2021-09-14 14:22] LABS: CALCIUM 9.3 MG/DL (8.5-10.1)
[2021-09-14 14:23] LABS: TOTAL PROTEIN 6.8 GM/DL (6.4-8.2)
[2021-09-14 14:25] LABS: BILIRUBIN,TOTAL 0.5 MG/DL (0.1-1.0)
[2021-09-14 14:27] LABS: CREATININE SERUM 0.84 MG/DL (0.60-1.30)
== END ==
LOC: ONC 13:14
PROVIDERS: ATTEND Internal Medicine Hematology & Oncology
DX: C83.00 Small cell B-cell lymphoma, unspecified site (principal); E03.9 Hypothyroidism, unspecified; B02.9 Zoster without complications; G62.9 Polyneuropathy, unspecified; N40.0 Benign prostatic hyperplasia without lower urinary tract symptoms
CPT/HCPCS: 80053; 85025

== ENCOUNTER 2021-10-06 10:15 | Outpatient (RCR) | payer OTHER ==
[2021-10-06 10:26] LABS: BASOPHILS % (AUTO) 1 % (0-10); EOSINOPHILS # (AUTO) 0.1 10^3/uL (0.0-0.3); EOSINOPHILS % (AUTO) 3 % (0-10); HEMATOCRIT 45 % (40-54); HEMOGLOBIN 14.7 g/dL (13.3-17.7); LYMPHOCYTES # (AUTO) 2.1 10^3/uL (1.0-4.0); LYMPHOCYTES % (AUTO) 48 % (12-44); MEAN CORPUSCULAR HEMOGLOBIN 32 pg (25-34); MEAN CORPUSCULAR HGB CONC 33 g/dL (32-36); MEAN CORPUSCULAR VOLUME 98 fL (80-99); MEAN PLATELET VOLUME 12.3 fL (9.0-12.2); MONOCYTES # (AUTO) 0.1 10^3/uL (0.0-1.0); MONOCYTES % (AUTO) 2 % (0-12); NEUTROPHILS % (AUTO) 46 % (42-75); PLATELET COUNT 121 10^3/uL (130-400); WHITE BLOOD COUNT 4.4 10^3/uL (4.3-11.0)
[2021-10-06 10:42] LABS: ALBUMIN 3.8 GM/DL (3.2-4.5); BILIRUBIN,TOTAL 0.4 MG/DL (0.1-1.0); CALCIUM 9.1 MG/DL (8.5-10.1); CREATININE SERUM 0.89 MG/DL (0.60-1.30); TOTAL PROTEIN 6.6 GM/DL (6.4-8.2)
== END 2021-11-02 | disposition home or self-care (01) ==
LOC: ONC 10:15
PROVIDERS: ATTEND Internal Medicine Hematology & Oncology
DX: C83.00 Small cell B-cell lymphoma, unspecified site (principal); B02.9 Zoster without complications; G62.9 Polyneuropathy, unspecified; E03.9 Hypothyroidism, unspecified
CPT/HCPCS: 36415; 80053; 84443; 85025

== ENCOUNTER 2021-11-10 08:44 | Outpatient (RCR) | payer OTHER ==
[2021-11-10 09:00] LABS: BASOPHILS % (AUTO) 0 % (0-10); EOSINOPHILS # (AUTO) 0.1 10^3/uL (0.0-0.3); EOSINOPHILS % (AUTO) 3 % (0-10); HEMATOCRIT 44 % (40-54); HEMOGLOBIN 14.9 g/dL (13.3-17.7); LYMPHOCYTES # (AUTO) 1.5 10^3/uL (1.0-4.0); LYMPHOCYTES % (AUTO) 40 % (12-44); MEAN CORPUSCULAR HEMOGLOBIN 33 pg (25-34); MEAN CORPUSCULAR HGB CONC 34 g/dL (32-36); MEAN CORPUSCULAR VOLUME 98 fL (80-99); MEAN PLATELET VOLUME 11.9 fL (9.0-12.2); MONOCYTES # (AUTO) 0.1 10^3/uL (0.0-1.0); MONOCYTES % (AUTO) 2 % (0-12); NEUTROPHILS # (AUTO) 2.1 10^3/uL (1.8-7.8); NEUTROPHILS % (AUTO) 55 % (42-75); PLATELET COUNT 108 10^3/uL (130-400); WHITE BLOOD COUNT 3.7 10^3/uL (4.3-11.0)
[2021-11-10 09:18] LABS: ALBUMIN 3.8 GM/DL (3.2-4.5); BILIRUBIN,TOTAL 0.4 MG/DL (0.1-1.0); CALCIUM 9.2 MG/DL (8.5-10.1); CREATININE SERUM 0.91 MG/DL (0.60-1.30); POTASSIUM 3.4 MMOL/L (3.6-5.0); TOTAL PROTEIN 6.4 GM/DL (6.4-8.2)
== END 2021-11-24 11:03 | disposition home or self-care (01) ==
LOC: ONC 08:44
PROVIDERS: ATTEND Internal Medicine Hematology & Oncology
DX: C83.00 Small cell B-cell lymphoma, unspecified site (principal); B02.9 Zoster without complications; G62.9 Polyneuropathy, unspecified; E03.9 Hypothyroidism, unspecified
CPT/HCPCS: 36415; 80053; 84443; 85025; 99213

== ENCOUNTER → 2021-12-08 | Outpatient (CLI) | payer OTHER ==
[~2021-12-08] MED LIST changes: +CATHETER FLUSH 10 ML SYR IV PRN; +HOLD METFORMIN - RECEIVED CONTRAST 20 ML VIAL IV SCH; +IOHEXOL 350 MG/ML 100 ML (OMNIPAQUE 350) VIAL IV ONE; +NS 100 ML (IVPB) BAG IV ONE
--- NOTE | 2021-12-11 13:27 | Diagnostic Imaging Report ---
CT [id number] W/ABD W WO INDICATION: Lymphoma. COMPARISON: 08/21/2021. TECHNIQUE: CT imaging of the neck, chest, abdomen and pelvis was performed with IV contrast. Automatic exposure controls were utilized to keep dose as low as reasonably achievable. FINDINGS: NECK: The left posterior cervical lymph node now measures 4.5 x 1.9 cm (previously 5.3 x 2.6 cm). A left supraclavicular lymph node has decreased in size now measuring 1.5 x 1.3 cm (previously 2.3 x 1.8 cm when measured similarly). The additional smaller cervical lymph nodes have all decreased in size as well. There are no enlarging cervical lymph nodes. Airway remains widely patent. There is no abnormal soft tissue thickening in the pharyngeal mucosal space. Degenerative changes in cervical spine are similar. No worrisome focal osseous lesions. Small mucosal retention cysts in the maxillary sinuses are unchanged. Parotid and submandibular glands are normal. CHEST: The axillary lymphadenopathy continues to decrease in size. The target lymph node now measures 1.0 x 1.3 cm (previously 1.6 x 1.5 cm). The periaortic lymph node now measures 2.0 cm in short axis (previously 2.3 cm). The remainder of the mildly enlarged mediastinal lymph nodes continue to decrease in size as well. No hilar lymphadenopathy. No pleural effusion or pneumothorax. No abnormality in the trachea. Mild paraseptal emphysema is unchanged. No pneumonia or edema. There are no suspicious pulmonary nodules. No suspicious osseous lesions have developed. ABDOMEN AND PELVIS: The left retroperitoneal anastasia mass now measures 4.1 cm in maximal thickness (previously 5.6 cm when measured similarly). All the lymph nodes along this anastasia chain have diminished in size. The left lower quadrant mesenteric lymph node measures 2.8 x 2.1 cm (previously 2.8 x 3.5 cm). No new or enlarging abdominal or pelvic lymphadenopathy. Liver and spleen remain normal in size without concerning focal abnormalities. Gallbladder is contracted without radiopaque gallstones. Stable low-attenuation left adrenal nodule. Right adrenal gland is normal. Pancreas is unremarkable. No solid renal mass or obstructive uropathy. No bowel obstruction. Stable prostatomegaly. Colonic diverticulosis without diverticulitis. Atherosclerotic aorta is normal in caliber. IMPRESSION: Continued favorable response to treatment as the lymphadenopathy in the neck, chest and abdomen all continues to decrease in size. Dictated by: Dictated on workstation # [id number]
== END ==
LOC: RAD 12:29
PROVIDERS: ATTEND Internal Medicine Hematology & Oncology
DX: C83.08 Small cell B-cell lymphoma, lymph nodes of multiple sites (principal)
CPT/HCPCS: 70491; 71260; 74178

== ENCOUNTER 2021-12-13 14:47 | Outpatient (RCR) | payer OTHER ==
[2021-12-08 09:58] LABS: HEMOGLOBIN 15.2 g/dL (13.3-17.7); LYMPHOCYTES # (AUTO) 1.7 10^3/uL (1.0-4.0)
[2021-12-08 10:00] LABS: BASOPHILS % (AUTO) 1 % (0-10); EOSINOPHILS # (AUTO) 0.1 10^3/uL (0.0-0.3); EOSINOPHILS % (AUTO) 2 % (0-10); HEMATOCRIT 45 % (40-54); LYMPHOCYTES % (AUTO) 43 % (12-44); MEAN CORPUSCULAR HEMOGLOBIN 33 pg (25-34); MEAN CORPUSCULAR HGB CONC 34 g/dL (32-36); MEAN CORPUSCULAR VOLUME 98 fL (80-99); MEAN PLATELET VOLUME 12.2 fL (9.0-12.2); MONOCYTES # (AUTO) 0.1 10^3/uL (0.0-1.0); MONOCYTES % (AUTO) 3 % (0-12); NEUTROPHILS % (AUTO) 51 % (42-75); PLATELET COUNT 118 10^3/uL (130-400); WHITE BLOOD COUNT 3.9 10^3/uL (4.3-11.0)
[2021-12-08 10:15] LABS: ALBUMIN 3.9 GM/DL (3.2-4.5); BILIRUBIN,TOTAL 0.6 MG/DL (0.1-1.0); CREATININE SERUM 0.82 MG/DL (0.60-1.30); POTASSIUM 3.8 MMOL/L (3.6-5.0); TOTAL PROTEIN 6.5 GM/DL (6.4-8.2)
[2021-12-08 10:36] LABS: SMEAR SCAN COMMENT YES
[~2021-12-13 14:47] MED LIST changes: -CATHETER FLUSH 10 ML SYR IV PRN; -HOLD METFORMIN - RECEIVED CONTRAST 20 ML VIAL IV SCH; -IOHEXOL 350 MG/ML 100 ML (OMNIPAQUE 350) VIAL IV ONE; -NS 100 ML (IVPB) BAG IV ONE
== END 2022-01-03 | disposition home or self-care (01) ==
LOC: ONC 14:47
PROVIDERS: ATTEND Internal Medicine Hematology & Oncology
DX: C83.08 Small cell B-cell lymphoma, lymph nodes of multiple sites (principal); B02.9 Zoster without complications; G62.9 Polyneuropathy, unspecified; E03.9 Hypothyroidism, unspecified
CPT/HCPCS: 36415; 80053; 84443; 85025; 99213

== ENCOUNTER 2022-01-15 09:20 | Outpatient (RCR) | payer OTHER ==
[2022-01-15 09:45] LABS: EOSINOPHILS # (AUTO) 0.1 10^3/uL (0.0-0.3); MEAN CORPUSCULAR VOLUME 99 fL (80-99)
[2022-01-15 09:47] LABS: BASOPHILS % (AUTO) 0 % (0-10); EOSINOPHILS % (AUTO) 2 % (0-10); HEMATOCRIT 45 % (40-54); HEMOGLOBIN 14.9 g/dL (13.3-17.7); LYMPHOCYTES # (AUTO) 1.4 10^3/uL (1.0-4.0); LYMPHOCYTES % (AUTO) 40 % (12-44); MEAN CORPUSCULAR HEMOGLOBIN 33 pg (25-34); MEAN CORPUSCULAR HGB CONC 34 g/dL (32-36); MEAN PLATELET VOLUME 12.4 fL (9.0-12.2); MONOCYTES # (AUTO) 0.1 10^3/uL (0.0-1.0); MONOCYTES % (AUTO) 3 % (0-12); NEUTROPHILS # (AUTO) 1.9 10^3/uL (1.8-7.8); NEUTROPHILS % (AUTO) 55 % (42-75); PLATELET COUNT 115 10^3/uL (130-400); WHITE BLOOD COUNT 3.5 10^3/uL (4.3-11.0)
[2022-01-15 09:49] LABS: SMEAR SCAN COMMENT YES
[2022-01-15 10:08] LABS: ALBUMIN 3.8 GM/DL (3.2-4.5); BILIRUBIN,TOTAL 0.5 MG/DL (0.1-1.0); CREATININE SERUM 0.83 MG/DL (0.60-1.30); POTASSIUM 3.9 MMOL/L (3.6-5.0); TOTAL PROTEIN 6.7 GM/DL (6.4-8.2)
== END 2022-02-02 | disposition home or self-care (01) ==
LOC: ONC 09:20
PROVIDERS: ATTEND Internal Medicine Hematology & Oncology
DX: C83.08 Small cell B-cell lymphoma, lymph nodes of multiple sites (principal); B02.9 Zoster without complications; G62.9 Polyneuropathy, unspecified; E03.9 Hypothyroidism, unspecified; N40.0 Benign prostatic hyperplasia without lower urinary tract symptoms
CPT/HCPCS: 36415; 80053; 85025; 99213

== ENCOUNTER 2022-02-22 09:20 | Outpatient (RCR) | payer OTHER ==
[2022-02-22 09:44] LABS: BASOPHILS % (AUTO) 1 % (0-10); HEMOGLOBIN 14.9 g/dL (13.3-17.7); MONOCYTES # (AUTO) 0.1 10^3/uL (0.0-1.0); MONOCYTES % (AUTO) 3 % (0-12)
[2022-02-22 09:46] LABS: EOSINOPHILS # (AUTO) 0.1 10^3/uL (0.0-0.3); EOSINOPHILS % (AUTO) 2 % (0-10); HEMATOCRIT 44 % (40-54); LYMPHOCYTES # (AUTO) 1.2 10^3/uL (1.0-4.0); LYMPHOCYTES % (AUTO) 38 % (12-44); MEAN CORPUSCULAR HEMOGLOBIN 33 pg (25-34); MEAN CORPUSCULAR HGB CONC 34 g/dL (32-36); MEAN CORPUSCULAR VOLUME 99 fL (80-99); NEUTROPHILS # (AUTO) 1.8 10^3/uL (1.8-7.8); NEUTROPHILS % (AUTO) 56 % (42-75); PLATELET COUNT 122 10^3/uL (130-400); WHITE BLOOD COUNT 3.2 10^3/uL (4.3-11.0)
[2022-02-22 10:03] LABS: ALBUMIN 3.8 GM/DL (3.2-4.5); BILIRUBIN,TOTAL 0.6 MG/DL (0.1-1.0); CALCIUM 9.1 MG/DL (8.5-10.1); CREATININE SERUM 0.85 MG/DL (0.60-1.30); POTASSIUM 3.7 MMOL/L (3.6-5.0); TOTAL PROTEIN 6.7 GM/DL (6.4-8.2)
== END 2022-03-05 | disposition home or self-care (01) ==
LOC: ONC 09:20
PROVIDERS: ATTEND Internal Medicine Hematology & Oncology
DX: C83.08 Small cell B-cell lymphoma, lymph nodes of multiple sites (principal); B02.9 Zoster without complications; G62.9 Polyneuropathy, unspecified; E03.9 Hypothyroidism, unspecified; N40.0 Benign prostatic hyperplasia without lower urinary tract symptoms
CPT/HCPCS: 36415; 80053; 85025; 99213

== ENCOUNTER 2022-03-26 14:22 | Outpatient (RCR) | payer OTHER ==
[2022-03-26 14:54] LABS: BASOPHILS % (AUTO) 1 % (0-10); HEMOGLOBIN 14.6 g/dL (13.3-17.7); MEAN CORPUSCULAR HGB CONC 34 g/dL (32-36); MEAN CORPUSCULAR VOLUME 98 fL (80-99)
[2022-03-26 14:56] LABS: EOSINOPHILS # (AUTO) 0.1 10^3/uL (0.0-0.3); EOSINOPHILS % (AUTO) 3 % (0-10); HEMATOCRIT 43 % (40-54); LYMPHOCYTES # (AUTO) 1.4 10^3/uL (1.0-4.0); LYMPHOCYTES % (AUTO) 40 % (12-44); MEAN CORPUSCULAR HEMOGLOBIN 33 pg (25-34); MEAN PLATELET VOLUME 11.3 fL (9.0-12.2); MONOCYTES # (AUTO) 0.1 10^3/uL (0.0-1.0); MONOCYTES % (AUTO) 4 % (0-12); NEUTROPHILS # (AUTO) 1.8 10^3/uL (1.8-7.8); NEUTROPHILS % (AUTO) 52 % (42-75); PLATELET COUNT 124 10^3/uL (130-400); WHITE BLOOD COUNT 3.4 10^3/uL (4.3-11.0)
[2022-03-26 15:20] LABS: ALBUMIN 3.7 GM/DL (3.2-4.5); BILIRUBIN,TOTAL 0.5 MG/DL (0.1-1.0); CALCIUM 8.7 MG/DL (8.5-10.1); CREATININE SERUM 0.81 MG/DL (0.60-1.30); POTASSIUM 3.6 MMOL/L (3.6-5.0)
== END 2022-04-04 | disposition home or self-care (01) ==
LOC: ONC 14:22
PROVIDERS: ATTEND Internal Medicine Hematology & Oncology
DX: C83.08 Small cell B-cell lymphoma, lymph nodes of multiple sites (principal); B02.9 Zoster without complications; G62.9 Polyneuropathy, unspecified; E03.9 Hypothyroidism, unspecified; N40.0 Benign prostatic hyperplasia without lower urinary tract symptoms
CPT/HCPCS: 36415; 80053; 85025

== ENCOUNTER 2022-04-19 08:55 | Outpatient (RCR) | payer OTHER ==
[2022-04-19 09:18] LABS: BASOPHILS % (AUTO) 1 % (0-10); EOSINOPHILS # (AUTO) 0.1 10^3/uL (0.0-0.3); MEAN CORPUSCULAR VOLUME 99 fL (80-99)
[2022-04-19 09:20] LABS: EOSINOPHILS % (AUTO) 2 % (0-10); HEMATOCRIT 45 % (40-54); LYMPHOCYTES # (AUTO) 1.2 10^3/uL (1.0-4.0); LYMPHOCYTES % (AUTO) 34 % (12-44); MEAN CORPUSCULAR HEMOGLOBIN 33 pg (25-34); MEAN CORPUSCULAR HGB CONC 33 g/dL (32-36); MEAN PLATELET VOLUME 12.2 fL (9.0-12.2); MONOCYTES # (AUTO) 0.2 10^3/uL (0.0-1.0); MONOCYTES % (AUTO) 5 % (0-12); NEUTROPHILS % (AUTO) 58 % (42-75); PLATELET COUNT 111 10^3/uL (130-400); WHITE BLOOD COUNT 3.5 10^3/uL (4.3-11.0)
[2022-04-19 09:57] LABS: ALBUMIN 3.9 GM/DL (3.2-4.5); BILIRUBIN,TOTAL 0.4 MG/DL (0.1-1.0); CALCIUM 9.2 MG/DL (8.5-10.1); CREATININE SERUM 0.93 MG/DL (0.60-1.30); POTASSIUM 3.7 MMOL/L (3.6-5.0); TOTAL PROTEIN 6.6 GM/DL (6.4-8.2)
== END 2022-05-05 | disposition home or self-care (01) ==
LOC: ONC 08:55
PROVIDERS: ATTEND Internal Medicine Hematology & Oncology
DX: C83.08 Small cell B-cell lymphoma, lymph nodes of multiple sites (principal); B02.9 Zoster without complications; G62.9 Polyneuropathy, unspecified; E03.9 Hypothyroidism, unspecified; N40.0 Benign prostatic hyperplasia without lower urinary tract symptoms
CPT/HCPCS: 36415; 80053; 85025; 99213

== ENCOUNTER 2022-05-24 13:02 | Outpatient (RCR) | payer OTHER ==
[2022-05-24 13:30] LABS: BASOPHILS % (AUTO) 1 % (0-10); HEMOGLOBIN 14.9 g/dL (13.3-17.7); MEAN CORPUSCULAR VOLUME 99 fL (80-99)
[2022-05-24 13:32] LABS: EOSINOPHILS # (AUTO) 0.1 10^3/uL (0.0-0.3); EOSINOPHILS % (AUTO) 2 % (0-10); HEMATOCRIT 45 % (40-54); LYMPHOCYTES # (AUTO) 1.3 10^3/uL (1.0-4.0); LYMPHOCYTES % (AUTO) 34 % (12-44); MEAN CORPUSCULAR HEMOGLOBIN 33 pg (25-34); MEAN CORPUSCULAR HGB CONC 34 g/dL (32-36); MONOCYTES # (AUTO) 0.1 10^3/uL (0.0-1.0); MONOCYTES % (AUTO) 3 % (0-12); NEUTROPHILS # (AUTO) 2.2 10^3/uL (1.8-7.8); NEUTROPHILS % (AUTO) 60 % (42-75); PLATELET COUNT 135 10^3/uL (130-400); WHITE BLOOD COUNT 3.8 10^3/uL (4.3-11.0)
[2022-05-24 13:50] LABS: ALBUMIN 3.8 GM/DL (3.2-4.5); BILIRUBIN,TOTAL 0.7 MG/DL (0.1-1.0); CALCIUM 9.1 MG/DL (8.5-10.1); CREATININE SERUM 0.87 MG/DL (0.60-1.30); POTASSIUM 3.7 MMOL/L (3.6-5.0); TOTAL PROTEIN 6.4 GM/DL (6.4-8.2)
== END 2022-06-05 | disposition home or self-care (01) ==
LOC: ONC 13:02
PROVIDERS: ATTEND Internal Medicine Hematology & Oncology
DX: C83.08 Small cell B-cell lymphoma, lymph nodes of multiple sites (principal); B02.9 Zoster without complications; G62.9 Polyneuropathy, unspecified; E03.9 Hypothyroidism, unspecified; N40.0 Benign prostatic hyperplasia without lower urinary tract symptoms
CPT/HCPCS: 36415; 80053; 85025; 99213

== ENCOUNTER 2022-06-22 08:58 | Outpatient (RCR) | payer OTHER ==
[2022-06-22 09:33] LABS: BASOPHILS % (AUTO) 1 % (0-10); EOSINOPHILS # (AUTO) 0.1 10^3/uL (0.0-0.3); EOSINOPHILS % (AUTO) 2 % (0-10); HEMATOCRIT 44 % (40-54); HEMOGLOBIN 14.9 g/dL (13.3-17.7); LYMPHOCYTES % (AUTO) 26 % (12-44); MEAN CORPUSCULAR HEMOGLOBIN 33 pg (25-34); MEAN CORPUSCULAR HGB CONC 34 g/dL (32-36); MEAN CORPUSCULAR VOLUME 97 fL (80-99); MEAN PLATELET VOLUME 13.7 fL (9.0-12.2); MONOCYTES # (AUTO) 0.1 10^3/uL (0.0-1.0); MONOCYTES % (AUTO) 4 % (0-12); NEUTROPHILS # (AUTO) 2.5 10^3/uL (1.8-7.8); NEUTROPHILS % (AUTO) 68 % (42-75); PLATELET COUNT 134 10^3/uL (130-400); WHITE BLOOD COUNT 3.7 10^3/uL (4.3-11.0)
[2022-06-22 09:46] LABS: ALBUMIN 3.7 GM/DL (3.2-4.5); BILIRUBIN,TOTAL 0.6 MG/DL (0.1-1.0); CREATININE SERUM 0.98 MG/DL (0.60-1.30); POTASSIUM 3.8 MMOL/L (3.6-5.0); TOTAL PROTEIN 6.3 GM/DL (6.4-8.2)
== END 2022-07-03 | disposition home or self-care (01) ==
LOC: ONC 08:58
PROVIDERS: ATTEND Internal Medicine Hematology & Oncology
DX: C83.08 Small cell B-cell lymphoma, lymph nodes of multiple sites (principal); B02.9 Zoster without complications; G62.9 Polyneuropathy, unspecified; E03.9 Hypothyroidism, unspecified; N40.0 Benign prostatic hyperplasia without lower urinary tract symptoms
CPT/HCPCS: 36415; 80053; 85025

== ENCOUNTER → 2022-07-02 | Outpatient (CLI) | payer OTHER ==
[~2022-07-02] MED LIST changes: +CATHETER FLUSH 10 ML SYR IV PRN; +HOLD METFORMIN - RECEIVED CONTRAST 20 ML VIAL IV SCH; +IOHEXOL 350 MG/ML 100 ML (OMNIPAQUE 350) VIAL IV ONE; +NS 100 ML (IVPB) BAG IV ONE
--- NOTE | 2022-07-02 14:33 | Diagnostic Imaging Report ---
INDICATION: Lymphoma, follow-up. TECHNIQUE: Axial imaging through the neck, chest, abdomen, and pelvis was performed after the administration of intravenous contrast. COMPARISON: Correlation is made with prior CT from 12/08/2021. CT NECK: The left posterior cervical lymph node measures 3.8 x 1.6 cm compared with 4.6 x 1.9 cm. The left supraclavicular lymph node is not well visualized on today's study. No other abnormally enlarged cervical lymph nodes are identified. The visualized intracranial structures are unremarkable. Posterior nasopharynx and oropharynx are unremarkable. Larynx is unremarkable. No definite thyroid mass is seen. Parotid and submandibular glands are symmetric and unremarkable. IMPRESSION: Decrease in size of left posterior cervical lymph node when compared with prior examination from 12/08/2021. CT CHEST: The targeted left axillary lymph node is slightly smaller in size at 1.2 x 0.9 cm compared with 1.3 x 1.0 cm. No other enlarged axillary lymph nodes are identified. Aidee mass in the prevascular space appears stable with short axis measurement of 1.9 cm compared with 2.0 cm. The remainder of the mediastinal nodes are stable. No hilar lymphadenopathy is identified. No pericardial or pleural fluid is detected. Parenchymal evaluation again demonstrates upper lobe paraseptal emphysema. No pulmonary mass or infiltrate is identified. CT ABDOMEN AND PELVIS: The aidee mass in the aortocaval region measures 3.9 cm AP compared with 4.1 cm on prior. Majority of the central retroperitoneal lymph nodes all appear to be smaller. Left lower quadrant aidee mass measures 2.4 x 1.8 cm compared with 2.8 x 2.1 cm on prior. No definite iliac chain or inguinal lymphadenopathy is seen. Low-attenuation circumscribed lesions in the liver are noted and stable and suggestive of liver cysts. Gallbladder is unremarkable. Pancreas and spleen are unremarkable. A low-density nodule in the left adrenal gland appears stable and suggestive of an adenoma. Right kidney is unremarkable. The large cyst in the upper pole of the left kidney is stable. Aorta is calcified but nonaneurysmal. There is diverticulosis involving the descending and sigmoid colon, but no evidence of acute diverticulitis. There is no ascites. Bladder is unremarkable. Prostate is enlarged. There are fat-containing inguinal hernias bilaterally. IMPRESSION: 1. Overall improvement in thoracic, abdominal, and pelvic lymphadenopathy when compared with prior examination from 12/08/2021. No new or enlarging aidee mass is identified. 2. Uncomplicated diverticulosis. 3. Prostatomegaly. Dictated by: Dictated on workstation # [id number]
== END ==
LOC: RAD 11:45
PROVIDERS: ATTEND Internal Medicine Hematology & Oncology
DX: C83.08 Small cell B-cell lymphoma, lymph nodes of multiple sites (principal)
CPT/HCPCS: 70491; 71260; 74176

== ENCOUNTER 2022-07-20 08:53 | Outpatient (RCR) | payer OTHER ==
[~2022-07-20 08:53] MED LIST changes: -CATHETER FLUSH 10 ML SYR IV PRN; -HOLD METFORMIN - RECEIVED CONTRAST 20 ML VIAL IV SCH; -IOHEXOL 350 MG/ML 100 ML (OMNIPAQUE 350) VIAL IV ONE; -NS 100 ML (IVPB) BAG IV ONE
[2022-07-20 09:08] LABS: BASOPHILS % (AUTO) 1 % (0-10); HEMOGLOBIN 14.8 g/dL (13.3-17.7)
[2022-07-20 09:10] LABS: EOSINOPHILS # (AUTO) 0.1 10^3/uL (0.0-0.3); EOSINOPHILS % (AUTO) 3 % (0-10); HEMATOCRIT 44 % (40-54); LYMPHOCYTES # (AUTO) 1.1 10^3/uL (1.0-4.0); LYMPHOCYTES % (AUTO) 27 % (12-44); MEAN CORPUSCULAR HEMOGLOBIN 33 pg (25-34); MEAN CORPUSCULAR HGB CONC 34 g/dL (32-36); MEAN CORPUSCULAR VOLUME 98 fL (80-99); MEAN PLATELET VOLUME 11.8 fL (9.0-12.2); MONOCYTES # (AUTO) 0.2 10^3/uL (0.0-1.0); MONOCYTES % (AUTO) 4 % (0-12); NEUTROPHILS # (AUTO) 2.7 10^3/uL (1.8-7.8); NEUTROPHILS % (AUTO) 65 % (42-75); PLATELET COUNT 124 10^3/uL (130-400); WHITE BLOOD COUNT 4.2 10^3/uL (4.3-11.0)
[2022-07-20 09:28] LABS: ALBUMIN 3.6 GM/DL (3.2-4.5); BILIRUBIN,TOTAL 0.5 MG/DL (0.1-1.0); CALCIUM 8.9 MG/DL (8.5-10.1); CREATININE SERUM 0.98 MG/DL (0.60-1.30); TOTAL PROTEIN 6.1 GM/DL (6.4-8.2)
== END 2022-08-03 | disposition home or self-care (01) ==
LOC: ONC 08:53
PROVIDERS: ATTEND Internal Medicine Hematology & Oncology
DX: C83.08 Small cell B-cell lymphoma, lymph nodes of multiple sites (principal); B02.9 Zoster without complications; G62.9 Polyneuropathy, unspecified; E03.9 Hypothyroidism, unspecified; N40.0 Benign prostatic hyperplasia without lower urinary tract symptoms
CPT/HCPCS: 36415; 80053; 85025

== ENCOUNTER 2022-08-17 09:14 | Outpatient (RCR) | payer OTHER ==
[2022-08-17 09:38] LABS: HEMOGLOBIN 15.3 g/dL (13.3-17.7); MEAN CORPUSCULAR HGB CONC 34 g/dL (32-36)
[2022-08-17 09:40] LABS: BASOPHILS % (AUTO) 1 % (0-10); EOSINOPHILS # (AUTO) 0.1 10^3/uL (0.0-0.3); EOSINOPHILS % (AUTO) 2 % (0-10); HEMATOCRIT 45 % (40-54); LYMPHOCYTES % (AUTO) 29 % (12-44); MEAN CORPUSCULAR HEMOGLOBIN 33 pg (25-34); MEAN CORPUSCULAR VOLUME 97 fL (80-99); MEAN PLATELET VOLUME 12.5 fL (9.0-12.2); MONOCYTES # (AUTO) 0.1 10^3/uL (0.0-1.0); MONOCYTES % (AUTO) 4 % (0-12); NEUTROPHILS # (AUTO) 2.2 10^3/uL (1.8-7.8); NEUTROPHILS % (AUTO) 64 % (42-75); PLATELET COUNT 122 10^3/uL (130-400); WHITE BLOOD COUNT 3.4 10^3/uL (4.3-11.0)
[2022-08-17 09:54] LABS: ALBUMIN 3.9 GM/DL (3.2-4.5); BILIRUBIN,TOTAL 0.6 MG/DL (0.1-1.0); CALCIUM 9.1 MG/DL (8.5-10.1); CREATININE SERUM 0.86 MG/DL (0.60-1.30); POTASSIUM 3.8 MMOL/L (3.6-5.0); TOTAL PROTEIN 6.4 GM/DL (6.4-8.2)
== END 2022-09-02 | disposition home or self-care (01) ==
LOC: ONC 09:14
PROVIDERS: ATTEND Internal Medicine Hematology & Oncology
DX: C83.08 Small cell B-cell lymphoma, lymph nodes of multiple sites (principal); B02.9 Zoster without complications; G62.9 Polyneuropathy, unspecified; E03.9 Hypothyroidism, unspecified; N40.0 Benign prostatic hyperplasia without lower urinary tract symptoms
CPT/HCPCS: 36415; 80053; 85025

== ENCOUNTER → 2022-09-10 | Outpatient (CLI) | payer OTHER ==
[~2022-09-10] MED LIST changes: +IOHEXOL 350 MG/ML 100 ML (OMNIPAQUE 350) VIAL IV ONE; +NS 100 ML (IVPB) BAG IV ONE
--- NOTE | 2022-09-10 11:06 | Diagnostic Imaging Report ---
EXAMINATION: CT neck, chest, abdomen and pelvis with intravenous contrast. TECHNIQUE: Multiple contiguous axial images were obtained through the neck, chest, abdomen and pelvis after the uneventful administration of intravenous contrast. All CT scans use one or more of the following dose optimizing techniques: automated exposure control, MA and/or KvP adjustment based on patient size and exam type or iterative reconstruction. HISTORY: Lymphoma. COMPARISON: 07/02/2022 FINDINGS: Neck CT: A left posterior cervical lymph node measures 1.4 x 3.5 cm, previously 1.4 x 3.5 cm. Other lymph nodes in the neck are also unchanged in size. No new lymphadenopathy is seen. The muscles of the neck are normal. Vessels of the neck demonstrate normal course and caliber. Fascial planes are preserved and the deep spaces of the neck are normal. The visualized airway is widely patent. The base of the skull and the temporal bones are normal. Limited views of the brain including the cerebellum and brainstem are normal. The limited view of the [place] is unremarkable. The visualized portions of the orbits are normal. There is bilateral maxillary sinus mucosal disease. Chest CT: There is no edema or pneumonia. No pleural effusion. No pneumothorax. No suspicious nodules. There is no axillary or supraclavicular lymphadenopathy. Para-aortic lymph nodes measure up to 1.0 x 4.3 cm and are unchanged. No new lymphadenopathy is seen in the chest. Ascending aorta measures up to 4.7 cm and is unchanged. Heart size is normal. There are severe coronary artery calcifications. No pericardial effusion. Abdomen and Pelvis CT: A few tiny liver lesions are likely cysts but too small to characterize and are unchanged. No suspicious liver lesions. There is no biliary ductal dilation. Gallbladder is normal. Pancreas is normal. Spleen is normal. There is an unchanged 2.0 x 1.7 cm left adrenal nodule. Right adrenal gland is normal. There is a simple cyst in the left kidney. No suspicious renal lesion. There is no hydronephrosis. Urinary bladder is normal. Prostate gland is enlarged. Bowel is normal in caliber without obstruction or inflammation. There is diverticulosis without diverticulitis. No free fluid or air. Retroperitoneal lymph nodes measure up to 1.6 cm in short axis and are unchanged. No new lymphadenopathy in the abdomen or pelvis. Aorta is normal in caliber without aneurysm. There are no suspicious osseus lesions. IMPRESSION: 1. Unchanged lymphadenopathy in the neck, chest, abdomen and pelvis. 2. Unchanged 4.7 cm ascending aortic aneurysm. Dictated by: Dictated on workstation # [id number]
== END ==
LOC: RAD 09:45
PROVIDERS: ATTEND Internal Medicine Hematology & Oncology
DX: C83.08 Small cell B-cell lymphoma, lymph nodes of multiple sites (principal); I71.9 Aortic aneurysm of unspecified site, without rupture
CPT/HCPCS: 70491; 71260; 74176

== ENCOUNTER 2022-09-14 09:19 | Outpatient (RCR) | payer OTHER ==
[~2022-09-14 09:19] MED LIST changes: -IOHEXOL 350 MG/ML 100 ML (OMNIPAQUE 350) VIAL IV ONE; -NS 100 ML (IVPB) BAG IV ONE
[2022-09-14 09:46] LABS: BASOPHILS % (AUTO) 1 % (0-10)
[2022-09-14 09:48] LABS: EOSINOPHILS # (AUTO) 0.1 10^3/uL (0.0-0.3); EOSINOPHILS % (AUTO) 3 % (0-10); HEMATOCRIT 44 % (40-54); HEMOGLOBIN 14.4 g/dL (13.3-17.7); LYMPHOCYTES % (AUTO) 24 % (12-44); MEAN CORPUSCULAR HEMOGLOBIN 33 pg (25-34); MEAN CORPUSCULAR HGB CONC 33 g/dL (32-36); MEAN CORPUSCULAR VOLUME 99 fL (80-99); MEAN PLATELET VOLUME 12.3 fL (9.0-12.2); MONOCYTES # (AUTO) 0.2 10^3/uL (0.0-1.0); MONOCYTES % (AUTO) 4 % (0-12); NEUTROPHILS # (AUTO) 2.6 10^3/uL (1.8-7.8); NEUTROPHILS % (AUTO) 68 % (42-75); PLATELET COUNT 127 10^3/uL (130-400); WHITE BLOOD COUNT 3.9 10^3/uL (4.3-11.0)
[2022-09-14 10:06] LABS: ALBUMIN 3.8 GM/DL (3.2-4.5); BILIRUBIN,TOTAL 0.4 MG/DL (0.1-1.0); CALCIUM 8.5 MG/DL (8.5-10.1); CREATININE SERUM 0.84 MG/DL (0.60-1.30); POTASSIUM 3.9 MMOL/L (3.6-5.0); TOTAL PROTEIN 6.2 GM/DL (6.4-8.2)
== END 2022-10-03 | disposition home or self-care (01) ==
LOC: ONC 09:19
PROVIDERS: ATTEND Internal Medicine Hematology & Oncology
DX: C83.08 Small cell B-cell lymphoma, lymph nodes of multiple sites (principal); B02.9 Zoster without complications; G62.9 Polyneuropathy, unspecified; E03.9 Hypothyroidism, unspecified; N40.0 Benign prostatic hyperplasia without lower urinary tract symptoms
CPT/HCPCS: 36415; 80053; 85025

== ENCOUNTER 2023-01-09 19:22 | Outpatient (CLI) | payer OTHER ==
[~2023-01-09 19:22] MED LIST changes: +FAMO-356 PO; -FAMO20TA3 PO
== END 2023-01-10 ==
LOC: SLEEP 19:22
PROVIDERS: ATTEND Nurse Practitioner
DX: G47.33 Obstructive sleep apnea (adult) (pediatric) (principal); I10 Essential (primary) hypertension; R06.83 Snoring
CPT/HCPCS: 95810